=== PATIENT | female | born 1945 | race Caucasian/White ===

== ENCOUNTER → 2016-07-13 | Outpatient (CLI) | payer MEDICARE, OTHER | LOC: MC.RAD 09:49 | DX: Z12.31 Encounter for screening mammogram for malignant neoplasm of breast (principal) ==

== ENCOUNTER → 2017-08-06 | Outpatient (CLI) | payer MEDICARE, OTHER | LOC: MC.RAD 09:00 | DX: Z12.31 Encounter for screening mammogram for malignant neoplasm of breast (principal) ==

== ENCOUNTER → 2018-07-28 | Outpatient (CLI) | payer MEDICARE, OTHER | LOC: COL.RAD 07-27 09:00 | DX: M20.21 Hallux rigidus, right foot (principal) | CPT/HCPCS: J3301; Q9967 ==

== ENCOUNTER → 2018-08-08 | Outpatient (CLI) | payer MEDICARE, OTHER | LOC: MC.RAD 10:00 | DX: Z12.31 Encounter for screening mammogram for malignant neoplasm of breast (principal) ==

== ENCOUNTER → 2019-01-02 | Outpatient (CLI) | payer MEDICARE, OTHER | LOC: COL.RAD 09:29 | DX: M79.641 Pain in right hand (principal); M20.21 Hallux rigidus, right foot | CPT/HCPCS: J3301; Q9967 ==

== ENCOUNTER → 2020-01-15 | Outpatient (CLI) | payer MEDICARE, OTHER | LOC: MC.RAD 14:45 | DX: Z12.31 Encounter for screening mammogram for malignant neoplasm of breast (principal) ==

== ENCOUNTER → 2021-01-17 | Outpatient (CLI) | payer MEDICARE, OTHER | LOC: MC.RAD 11:36 | DX: Z12.31 Encounter for screening mammogram for malignant neoplasm of breast (principal) ==